=== PATIENT | male | born 1995 | race Caucasian/White ===

== ENCOUNTER 2025-07-08 14:07 | Emergency (ER) | payer MEDICAID, SELFPAY ==
[2025-07-08 14:12] VITALS: BP 129/71; PULSE 92; RESP 18; TEMP 36.6; O2SAT 98; BMI 21.5
--- NOTE | 2025-07-08 14:13 | ED.GENADULT ---
HPI - General Adult General Date Seen: 07/08/25 Chief complaint: Eye Problems Stated complaint: FB Right Eye Time Seen by Provider: 07/08/25 14:09 History of Present Illness HPI narrative: This is a very pleasant generally healthy this 30-year-old gentleman presenting to the ER today (accompanied by his and son) for evaluation of a foreign body under his right upper eyelid. 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 It happened less than 1 hour prior to arrival. He had his look at his eye because it was very irritated and she could see a tiny black piece but could not get it out. He notices pain that seems to be under his upper eyelid and hurts when he tries to look up with his eyeball. He is not having any blurry vision. No purulent discharge. No eye redness. He is unsure of his last tetanus shot but is not interested in getting a tetanus shot today. Related Data Home Medications ?Medication ?Instructions ?Recorded ?Confirmed No Known Home Medications 07/08/25 07/08/25 Allergies Allergy/AdvReac Type Severity Reaction Status Date / Time No Known Drug Allergies Allergy Verified 07/08/25 14:14 Exam Narrative: Exam Narrative: Constitutional: Appears well-developed and well-nourished. Active. Non-toxic appearing. Holding his son in his lap. HENT: Head: Atraumatic. No signs of injury. Nose: No nasal discharge. Mouth/Throat: Mucous membranes are moist. Pharynx is normal. Tonsils symmetric. Uvula midline. Airway patent. Eyes: Visual acuity (R): 20/30, (L): 20/30 PERRLA, EOMI. No exophthalmos or enophthalmos. Conjunctiva without injection or chemosis Slit Lamp Exam: Lids: There is a small black foreign body under the upper eyelid. I did howard the eyelid and then used a sterile Q-tip to remove the foreign body. I do not see any other foreign bodies. No 2nd foreign body noted in detailed exam upper and lower lids Anterior Chamber: No cells or flare, No hyphema. No hypopyon. Cornea: No foreign body. Fluorescein staining: Negative Conjunctivae normal and EOM are normal. No exophthalmos or enophthalmos. Pupils are equal, round, and reactive to light. Right eye exhibits no discharge. Left eye exhibits no discharge. No icterus. Neck: Normal range of motion. Neck supple. Cardiovascular: Normal rate and regular rhythm. Skin is pink, warm, well perfused. Pulmonary/Chest: Effort normal. No stridor. No respiratory distress. Musculoskeletal: Normal range of motion. No edema. No tenderness. No deformity. Neurological: Alert. Normal strength. No cranial nerve deficit or sensory deficit. Coordination normal. GCS eye subscore is 4. GCS verbal subscore is 5. GCS motor subscore is 6. Skin: Skin is warm. No rash noted. Const: Vital Signs, click to edit/add: Vital Signs - 24 hr 07/08/25 14:12 Temperature 97.8 F Pulse Rate [Pulse Oximeter] 92 Respiratory Rate 18 Blood Pressure [Ri t Upper Arm] 129/71 Pulse Oximetry 98 Oxygen Delivery Me thod Room Air Course Vital Signs Vital signs: Initial Vital Signs Temperature 97.8 F 07/08/25 14:12 Temperature Source Temporal Artery Scan 07/08/25 14:12 Pulse Rate 92 07/08/25 14:12 Pulse Rhythm Regular 07/08/25 14:12 Respiratory Rate 18 07/08/25 14:12 Blood Pressure 129/71 07/08/25 14:12 Blood Pressure Mean 90 07/08/25 14:12 Blood Pressure Position Sitting 07/08/25 14:12 Pulse Oximetry 98 07/08/25 14:12 Oxygen Delivery Method Room Air 07/08/25 14:12 Vital Signs Temperature 97.8 F 07/08/25 14:12 Pulse Rate 92 07/08/25 14:12 Respiratory Rate 18 07/08/25 14:12 Blood Pressure 129/71 07/08/25 14:12 Pulse Oximetry 98 07/08/25 14:12 Oxygen Delivery Method Room Air 07/08/25 14:12 Temperature 97.8 F 07/08/25 14:12 Pulse Rate 92 07/08/25 14:12 Respiratory Rate 18 07/08/25 14:12 Blood Pressure 129/71 07/08/25 14:12 Pulse Oximetry 98 07/08/25 14:12 Oxygen Delivery Method Room Air 07/08/25 14:12 Medications Administered Medications: Discontinued Medications Generic Name Dose Route Start Last Admin Trade Name Freq PRN Reason Stop Dose Admin Tetracaine HCl 2 drop 07/08/25 14:13 07/08/25 14:29 Tetracaine 0.5% Ophth EYE-BOTH 07/08/25 14:14 2 drop ONCE ONE Administration Medical Decision Making MDM Narrative Medical decision making narrative: This patient presents with right eye discomfort and suspected metallic foreign body in his right upper eyelid. On exam we did find a foreign body under the upper eyelid and was able to remove it with a sterile cotton tip applicator. I do not see any other foreign bodies present. There is no sign of any active conjunctivitis. No signs of eyelid laceration.. Fluorescein exam shows staining is negative for corneal abrasion. No foreign bodies in eyes or cornea. No corneal ulcers. There is not any visible open wound or laceration but with this foreign body we did discuss tetanus. Patient is not interested in tetanus update today. No signs of anterior chamber involvement such as endopthalmitis at this point. No sign of bacterial conjunctivitis. Lids are normal. PLAN: 1. Topical antibiotics-given a supply of gentamicin 0.3%-2 drops 4 times daily for 3 days 2. Pain management with orals meds 3. Close f/u of eye clinic and/or return if worsening symptoms Discharge Plan Discharge Clinical Impression: Foreign body of eyelid, right Patient Disposition: Home, Self-Care Condition: Stable Instructions: Eye Foreign Body (ED) Additional Instructions: As we discussed, I think we were able to successfully get the foreign body of of your eye today. I do not see any other remaining foreign bodies at this time. Please start on a topical antibiotics today and use it for the next couple of days. If you notice worsening trouble such as increasing pain or irritation your eye, redness, drainage or pus coming from her eye, please come back to the ER or recheck with your doctor or with [facility] right away. To make an appointment with [facility] you can call [phone] Prescriptions: No Action No Known Home Medications Stand Alone Forms: [facility] Info Instructions
[2025-07-08] MEDS: TETRACAINE 0.5% OPHTH 2 DROP EYE-BOTH (14:29)
== END 2025-07-08 15:02 | disposition home or self-care (01) ==
LOC: ED 14:42
PROVIDERS: Emergency Provider Emergency Medicine
DX: T15.81XA Foreign body in other and multiple parts of external eye, right eye, initial encounter (principal); W44.E9XA Other non-magnetic metal objects entering into or through a natural orifice, initial encounter; Y93.89 Activity, other specified
CPT/HCPCS: 99282; 99283; A9270